=== PATIENT | male | born 1990 | race Two or more races ===

== ENCOUNTER 2021-11-10 15:21 | Emergency (ER) | payer OTHER ==
[~2021-11-10] VITALS: Ht 175.3 cm; Wt 93.0 kg
--- NOTE | 2021-11-10 15:21 | NUR ---
TO ER BED 11, [id number] FOR BEING ALTERED (ALERT AND ORIENTED TO SELF). THE PATIENT FOUND ON THE SIDE OF SIDE WALK WITH A BAG OF MARIJUANA NEXT TO HIM, AAOX3, BREATHING EVEN AND NON LABORED, CONNECTED TO MONITOR
[2021-11-10 18:34] VITALS: BP 128/82
--- NOTE | 2021-11-10 18:34 | NUR ---
Patient discharged to home in stable condition. Written and verbal after care instructions given. Patient verbalizes understanding of instruction.
== END 2021-11-10 18:35 | disposition home or self-care (01) ==
LOC: ER 15:42
DX: F12.929 Cannabis use, unspecified with intoxication, unspecified (principal); F17.200 Nicotine dependence, unspecified, uncomplicated